=== PATIENT | female | born 1950 | race Caucasian/White ===

== ENCOUNTER 2017-05-07 06:58 | Day surgery (SDC) | payer MEDICARE ==
[2017-05-03 09:18] VITALS: BMI 36.0
[~2017-05-07 06:58] MED LIST: LACTATED RINGERS 1,000 ML IV SCH
[2017-05-07 07:07] VITALS: TEMP 97.6
[2017-05-07 07:30] LABS: Glucose,Whole Blood 131 mg/dL (75-99)
[2017-05-07] MEDS ORDERED: PROPOFOL 10 MG/ML 20 ML VIAL IV ONE (07:40)
--- NOTE | 2017-05-07 07:52 | P.GSHP ---
History of Present Illness H&P Date: 05/07/17 Chief Complaint: Screening colonoscopy This is a 66-year-old female referred from Dr. Juan Peraza. Patient rents today for screening colonoscopy. Past Medical History Past Medical History: Diabetes Mellitus, GERD/Reflux, Hypertension, Osteoarthritis (OA), Sleep Apnea/CPAP/BIPAP Additional Past Medical History / Comment(s): DIET CONTROLLED DIABETES, migraines, slightly anemic, History of Any Multi-Drug Resistant Organisms: None Reported Past Surgical History: Cholecystectomy, Hysterectomy, Joint Replacement Additional Past Surgical History / Comment(s): TOTAL RT KNEE REPLACEMENT Past Anesthesia/Blood Transfusion Reactions: No Reported Reaction Smoking Status: Former smoker - Past Family History Mother Family Medical History: No Reported History Additional Family Medical History / Comment(s): . Father Additional Family Medical History / Comment(s): EMPHYSEMA Medications and Allergies Home Medications Medication Instructions Recorded Confirmed Type Hydrochlorothiazide 12.5 mg PO DAILY 11/11/15 05/07/17 History [Hydrochlorothiazide] Loratadine [Claritin] 10 mg PO DAILY PRN 11/11/15 05/07/17 History Naproxen Sodium [Aleve] 220 mg PO Q8H PRN 11/11/15 05/07/17 History HYDROcodone/APAP 7.5-325MG [[place] 1 - 2 each PO Q6HR PRN #40 tab 03/20/16 Rx 7.5-325] Calcium/Magnesium/Zinc 1 each PO DAILY 05/03/17 05/07/17 History [Sodgnun-Miamteina-Zitu Tablet] Cyanocobalamin (Vitamin B-12) 2,000 mcg PO Q48H 05/03/17 05/07/17 History [Vitamin B-12] Magnesium/Potassium 1 tab PO DAILY 05/03/17 05/07/17 History Allergies Allergy/AdvReac Type Severity Reaction Status Date / Time No Known Allergies Allergy Verified 05/03/17 09:10 Surgical - Exam Vital Signs Temp Pulse Resp BP Pulse Ox 97.6 F 84 14 137/72 95 05/07/17 07:06 05/07/17 07:06 05/07/17 07:06 05/07/17 07:06 05/07/17 07:06 - General well developed, no distress - Eyes PERRL - ENT normal pinna, normal nares - Neck no masses - Respiratory normal expansion - Cardiovascular Rhythm: regular - Abdomen Abdomen: soft, non tender Results - Labs Abnormal Lab Results - Last 24 Hours (Table) 05/07/17 Range/Units 07:10 POC Glucose (mg/dL) 131 H (75-99) mg/dL Assessment and Plan Plan: We will perform screening colonoscopy.
--- NOTE | 2017-05-07 08:04 | P.OP ---
Date of Procedure: 05/07/17 Preoperative Diagnosis: Screening colonoscopy Postoperative Diagnosis: Mild diverticulosis External hemorrhoids Procedure(s) Performed: Colonoscopy Implants: Anesthesia: HEATHER Surgeon: Sami Jordan Pathology: none sent Condition: stable Disposition: PACU Indications for Procedure: Operative Findings: Description of Procedure: The patient's placed on the endoscopy table in the lateral position. She received IV sedation. Digital rectal exam was performed which revealed external hemorrhoids. The flexible colonoscope was then placed patient anus passed throughout the entire colon. The ileocecal valve was visualized. The cecum, ascending and transverse colon appeared normal. In the descending; was mild diverticular changes. Scope was then brought back the rectum this appeared normal. Scope was withdrawn for patient.
[2017-05-07 08:14] VITALS: BP 113/65; PULSE 83; RESP 16
== END 2017-05-07 08:55 | disposition home or self-care (01) ==
LOC: ORWHC2ENDO 06:58
PROVIDERS: ATTEND Surgery
DX: Z12.11 Encounter for screening for malignant neoplasm of colon (principal); K57.30 Diverticulosis of large intestine without perforation or abscess without bleeding; K64.4 Residual hemorrhoidal skin tags; I10 Essential (primary) hypertension; M19.90 Unspecified osteoarthritis, unspecified site; G47.33 Obstructive sleep apnea (adult) (pediatric); E11.9 Type 2 diabetes mellitus without complications; K21.9 Gastro-esophageal reflux disease without esophagitis; Z79.1 Long term (current) use of non-steroidal anti-inflammatories (NSAID); Z79.891 Long term (current) use of opiate analgesic; Z79.899 Other long term (current) drug therapy; Z99.89 Dependence on other enabling machines and devices; Z90.710 Acquired absence of both cervix and uterus; Z96.651 Presence of right artificial knee joint; Z87.891 Personal history of nicotine dependence
CPT/HCPCS: 45378; J2704

== ENCOUNTER → 2019-11-04 | Outpatient (CLI) | payer MEDICARE ==
--- NOTE | 2019-11-05 12:20 | MM ---
Reason for exam: screening (asymptomatic). Last mammogram was performed 5 years and 4 months ago. History: Patient is postmenopausal. Took estrogen for 14 years beginning at age 42. Physical Findings: A clinical breast exam by your physician is recommended on an annual basis and results should be correlated with mammographic findings. MG 3D Screening Mammo W/Cad Bilateral CC and MLO view(s) were taken. XCCL view(s) were taken of the right breast. Prior study comparison: July 07, 2014, bilateral MG screening mammo w CAD. April 07, 2013, bilateral digital screening mammo w/CAD. There are scattered fibroglandular densities. No suspicious abnormality. No significant changes when compared with prior studies. ASSESSMENT: Negative, BI-RAD 1 RECOMMENDATION: Routine screening mammogram of both breasts in 1 year.
== END | disposition home or self-care (01) ==
LOC: RADMAMWWP 08:16
PROVIDERS: ATTEND Family Medicine
DX: Z12.31 Encounter for screening mammogram for malignant neoplasm of breast (principal)
CPT/HCPCS: 77063; 77067

== ENCOUNTER → 2020-12-07 | Outpatient (CLI) | payer MEDICARE ==
--- NOTE | 2020-12-07 14:32 | XR ---
EXAMINATION TYPE: XR lumbar spine 2 or 3V DATE OF EXAM: 12/07/2020 Comparison: None Clinical History: 70-year-old female M54.16 Radiculopathy Findings: Cholecystectomy clips. Moderate to advanced multilevel disc/endplate degenerative change. Hypertrophi c facet arthropathy also present throughout. There is degenerative grade 1 retrolisthesis L1-L2 and L 2-L3. Vertebral body heights are preserved and remaining alignment is maintained. Impression: Moderate to advanced disc/endplate degenerative change throughout. Advanced hypertrophic facet arthro arthur and degenerative grade 1 retrolisthesis at L1-L2 and L2-L3. No vertebral compression collapse.
== END | disposition home or self-care (01) ==
LOC: RADXRMAIN 11:20
PROVIDERS: ATTEND Family Medicine
DX: M43.16 Spondylolisthesis, lumbar region (principal); M47.26 Other spondylosis with radiculopathy, lumbar region
CPT/HCPCS: 72100